=== PATIENT | female | born 1950 | race Asian ===

== ENCOUNTER 2023-08-01 21:04 | Observation (INO) | payer OTHER, SELFPAY ==
[2023-08-01] VITALS (7 sets, daily range): BP systolic 132–158; BP diastolic 72–92; PULSE 68–75; BMI 25.5; BMI 23.4
[2023-08-01 15:25] LABS: % Basophils 1.1 % (0-2); % Eosinophils 1.3 % (0-6); % Immature Granulocytes 0.2 % (0-0.5); % Monocytes 7.9 % (1.7-9.3); % Neutrophils 68.5 % (42.2-75.2); Absolute Basophils 0.1 10^3/uL (0-0.2); Absolute Eosinophils 0.1 10^3/uL (0-0.7); Absolute Monocytes 0.4 10^3/uL (0.1-0.6); Absolute Neutrophils 3.2 10^3/uL (1.4-6.5); Hematocrit 43.1 % (37.0-47.0); Hemoglobin 15.1 g/dL (12.0-16.0); Mean Corpuscular Volume 94.3 fL (81.0-99.0); Mean Platelet Volume 10.2 fL (7.4-10.4); Nucleated Red Blood Cells % 0 %; Platelet Count 193 10^3/uL (130-400); Red Blood Cell Count 4.57 10^6/uL (4.20-5.40); Red Cell Dist. Width 11.9 % (11.5-14.5); White Blood Cell Count 4.7 10^3/uL (4.8-10.8)
[2023-08-01 15:46] LABS: ALT (SGPT) 27 U/L (0-35); AST (SGOT) 39 U/L (14-36); Albumin 4.6 g/dl (3.5-5.0); Alkaline Phosphatase 61 U/L (38-126); Blood Urea Nitrogen 6 mg/dl (7-17); Calcium 9.3 mg/dl (8.4-10.2); Carbon Dioxide 29 mmol/L (22-30); Chloride 102 mmol/L (98-107); Glucose 135 mg/dl (70-99); Potassium 4.5 mmol/L (3.5-5.1); Sodium 136 mmol/L (135-145); Total Bilirubin 0.8 mg/dl (0.2-1.3); Total Protein 8.2 g/dl (6.3-8.2); eGFR > 60.00
[2023-08-01 15:50] LABS: Troponin I < 0.012 ng/ml
--- NOTE | 2023-08-01 17:47 | ED.GENMED ---
History of Present Illness
General
Chief Complaint: Dizziness
Source: patient, records and family
Time Seen by Provider: 08/01/23 17:03
Travel History
Have you had any contact with someone who has COVID-19?: No
Do you have any symptoms of coronavirus? Fever > 100 degrees, chills, cough, shortness of breath, sore throat, loss of taste or smell, muscle aches, or headache?: No
History of Present Illness
History of Present Illness:
This patient is a 73-year-old female presents emergency department with multiple medical complaints. History is somewhat challenging overall just based on the fact that the patient is a poor historian however her son served as a casting molder here.
The patient states that 1 to 2 months ago she felt dizzy and fell. She was noted to be hydrated. However, since that time, she is having intermittent episodes where she feels 'heavy in my head' all across the front and top of her head. This is
happening every day. This is associated with episodes of dizziness that she describes as a sense of movement or spinning. This is exacerbated by moving her head. She has occasional nausea but no vomiting. Today, in addition to those intermittent
symptoms, she had 'cramping' in bilateral hands and arms associated with left arm weakness. This was noted around 7 AM. By approximately 1 PM, symptoms were resolved. Patient was seen in urgent care before arriving here. In review systems she
does note a 'twisting' sensation in the left anterior chest wall 'every once in a while' that makes her feel like she cannot catch her breath. She denies leg swelling, recent immobilization, recent chest trauma, and states that the fall 2 months
ago was not a significant trauma. She denies hemoptysis, cough, fever, chills, dyspnea, change in vision, change in speech, clumsiness. When asked about numbness or tingling she notes that occasionally she will get left upper extremity numbness
but she cannot remember the last time she had it.
Past History
Past History
ED Past Medical History: Other (High blood pressure high cholesterol)
ED Past Surgical History: Cholecystectomy and Gynecological
Social History
Tobacco: Non-smoker
Alcohol: None
Drug: None
Personal:
Living: with family
Phy Exam
Physical Exam
Physical Exam:
GENERAL: Alert , in no apparent distress
EYE: pupils equal and reactive, EOMI, no nystagmus
NECK: Supple, no significant adenopathy.
ENT: o/p clr, mmm.
CARDIAC: Regular rate and rhythm .
LUNGS: Clear breath sounds bilaterally, no acute respiratory distress, no wheezes/rales/rhonchi
ABDOMEN: Soft, without focal tenderness, no r/g, no cvat
NEUROLOGICAL: Alert and oriented, no focal neuro deficits, [id number] normal, motor 5 out of 5, sensory intact, cranial nerves II through XII
SKIN: Warm and dry, skin intact.
MUSCULOSKELETAL: No edema, well perfused.
PSYCH: Normal and appropriate interaction.
Course
Orders/Labs/Results
Orders:
Orders
08/01/23 Dinner
Regular
At Your Request: Limited Participation
08/01/23 15:09
EKG [Electrocardiogram (*1)] Urgent
Reason for Study: Vertigo / Dizzy
08/01/23 15:10
EKG- Treatment ONCE
08/01/23 15:19
Complete Blood Count/With Diff Urgent
Comprehensive Metabolic Panel Urgent
Magnesium Urgent
Comment: ADD ON
Troponin I Urgent
08/01/23 17:16
CT Head W/o Iv Contrast Stat
Comment:
Reason For Exam: dizzy
08/01/23 17:46
ECG [Electrocardiogram (*1)] Stat
Reason for Study: Chest Pain
EKG- Treatment ONCE
08/01/23 18:13
D-Dimer Stat
08/01/23 19:53
Aspirin 325 mg PO NOW STA
08/01/23 20:29
Add On- LAB Urgent
Tests Added?: magnesium
08/01/23 20:30
Admit/Transfer Patient As Directed
Co-Sign Provider:
Level of Care: Observation services
Assign to:: Telemetry
Physician / Group: gricelda sanderson
Diagnosis: vertigo, left arm numbness concern tia/cva , cramping muscles
Reason for Telemetry: CVA/TIA
Date to Stop Telemetry: 08/04/23
Time to Stop Telemetry: 11:00
Reason for Hospitalization: vertigo, left arm numbness concern tia/cva , cramping muscles
Code Status As Directed
Resuscitation Status: Full Code
08/01/23 20:35
Meclizine [Antivert] 25 mg PO Q8HPRN PRN
Orthostatic Vital Signs As Directed
Orthostatic VS Frequency: Now
08/01/23 21:49
Activity As Directed
Activity Level: As Tolerated
Intake/ Output As Directed
Frequency: Per unit guidelines
Orthostatic Vital Signs As Directed
Orthostatic VS Frequency: Daily
Pneumatic Compression Sleeves As Directed
Type: Knee high
Vital Signs As Directed
Frequency: Per unit guidelines
Weight As Directed
Frequency: Daily
Ot Eval And Treat Routine
Pt Eval And Treat Routine
Activity Level: As Tolerated
DX Deep Vein Thrombosis Video Routine
08/01/23 22:00
Atorvastatin [Lipitor] 20 mg PO HS
Multivitamin [Theragran] 1 tablet PO HS
08/02/23 07:16
B12 [Vitamin B12] IN AM
Basic Metabolic Panel IN AM
Cardiovascular Evaluation IN AM
Complete Blood Count/With Diff IN AM
TSH Reflex To Free T4 IN AM
08/04/23 11:00
DC Protocol for Telemetry ONCE
Abnormal Lab Results
02/22/24
15:19
WBC 4.7 L 10^3/uL
(4.8-10.8)
MCH 33.0 H pg
(27.0-31.0)
Absolute Lymphs (auto) 1.0 L 10^3/uL
(1.2-3.4)
BUN 6 L mg/dl
(7-17)
Creatinine 0.5 L mg/dL
(0.6-1.0)
Glucose 135 H mg/dl
(70-99)
AST 39 H U/L
(14-36)
08/01/23 15:19
08/01/23 15:19
Vital Signs
Initial and Last Documented VS:
Initial Vital Signs
Temp Pulse Resp BP Pulse Ox
98.3 F 69 18 150/92 99
08/01/23 15:05 08/01/23 15:05 08/01/23 15:05 08/01/23 15:05 08/01/23 15:05
Last Documented Vital Signs
Temp Pulse Resp BP Pulse Ox
98.8 F 65 20 123/71 97
08/02/23 12:02 08/02/23 12:02 08/02/23 12:02 08/02/23 12:02 08/02/23 12:02
*Critical Care Note
Total Time (30-74mins, 75-104mins- exclusive of procedures): Not Applicable
Update Note
Update Note:
Patient presents to the Emergency Department with __multiple complaints including dizziness, weakness, etc.
Number and Complexity of Problems Addressed at the Encounter
� Chronic conditions affecting care:
� Acute Exacerbation and/or Progression of Chronic Illness:
� Differential Diagnosis includes: But not limited to TIA, CVA, peripheral vertigo, etc.
Amount and/or Complexity of Data to be Reviewed and Analyzed
� I performed an independent evaluation of and my interpretation is:
EKG: Read by me, sinus tachycardia, no acute ischemia, normal QRS
CT: No acute disease, possible sinus disease
Xrays:
Laboratory Studies: Generally unremarkable
Other:
� Review of other/old records reveals:
� Clinical information was obtained by an independent historian: Son who isbedside
� Prescriptions/Medications Considered but not given:
� Further testing considered but not performed:
Risk of Complications and/or Morbidity or Mortality of Patient Management
� Social determinants of health affecting care:
� Discussion with other providers (PCP, Hospitalists, Consultants, etc):
� Escalation of care including admission/observation vs risk of discharge considered: 73-year-old female with a variety of symptoms including intermittent weakness of left upper extremity, dizziness. Symptoms resolved now
however raises concern for the possibility of TIA/CVA. Recommend admission/observation likely MR etc. Will discuss with hospitalist
ED Attending Note
-
Portions of this chart may have been created with voice recognition software.� Occasional wrong word or��sound alike� substitutions may have occurred due to the inherent limitations of voice recognition software.
Discharge Plan
Departure
Patient Disposition: Admit
Date of Disposition: 08/01/23
Time of Disposition: 19:57
Admit to: Telemetry
Admit to doctor: maria e
Presentation/result/management discussed w/ accepting MD/DO: Hospitalist
Condition: Fair
Discharge Problem:
Dizziness, Weakness
Interventions
Interventions:
*Risk Screen - Suicide Last Done: 08/01/23 21:47
*General Assessment Last Done: 08/01/23 15:08
*Neglect/Abuse Screening Last Done: 08/01/23 15:08
ED- Fall Risk Assessment Last Done: 08/01/23 17:16
*ED COVID-19 Vaccine History Last Done: 08/01/23 21:47
*Nursing Disposition Last Done: 08/01/23 21:38
ED- Neurological Assessment Last Done: 08/01/23 17:16
ED- Cardiac Assessment Last Done: 08/01/23 17:16
ED Swallowing Screen Last Done: 08/01/23 17:22
Discharge Date and Time
Discharge Date/Time: 08/01/23 21:39
[2023-08-01 18:41] LABS: D-Dimer 0.27 ug/mlFEU (0.00-0.50)
[2023-08-01] MEDS: ASPIRIN 325 MG PO (19:56)
--- NOTE | 2023-08-01 20:05 | HPS.HSE ---
Addendum entered and electronically signed by Leroy Diop DO 08/01/23 21:40:
Patient seen and examined independently. Agree with findings and plan as set forth by TODD Ellison.
Patient is a 73y F with PMH significant for hypertension, GERD and vertigo who presents to ED for evaluation of dizziness and L arm numbness / pain. History from patient and family at the bedside serving as strategic planning specialist. Patient initially
developed dizziness / vertigo in August 2022. Has been having intermittent issues since that time. Had a small supply of meclizine prescribed in August, but none since that time. Patient reportedly had a fall about 2 months ago and presented to a
local ED (though not here apparently). She has been complaining of pain in the L knee and L elbow since that time. Today she noted numbness / tingling from the L elbow to the fingers and presented to the ED for evaluation. She also complains of
cramping of the hands / feet.
Ass:
Left Arm Numbness / Pain
Dizziness / Vertigo
Benign Hypertension
Dyslipidemia
GERD / Gastric Ulcer
Plan:
Observe overnight for further evaluation and treatment.
L elbow (and knee ) symptoms have been present since fall onto L side 1-2 months ago.
Check radiographs - though any bony injury would likely have healed by now in any event.
PT / OT evals.
Check orthostatic signs.
Vestibular therapy evaluation.
Meclizine PRN.
Neuro evaluation - defer any advanced imaging, etc to their recommendations.
No acute symptoms at this time that are concerning for acute CVA.
? residual dizziness due to prior CVA versus chronic BPPV.
Original Note:
Family Physician
-
Family Physician: NOT KNOW UNKNOWN - PT DOES
Chief Complaint
-
Dizziness with standing, hand and leg cramps decreased oral intake
History of Present Illness
73-year-old female whose son is translating at bedside has been reporting dizziness with standing since August 2022. She describes the dizziness as a spinning sensation with occasional nausea but no vomiting. She describes this worsens when she
stands to walk. She used to take meclizine but ran out in September. She reports this morning she had intermittent dizzy sensation with cramping in bilateral hands and feet along with left arm numbness from left elbow to fingertips. From 7 AM to 1 PM
then resolved. Her son states that she tends to get very anxious. She also has had loss of taste since 2004 had biopsies in her mouth at [facility] nothing ever discovered, due to this her son states that she does not tend to drink fluids throughout
the day. 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 She denies recent fever,
chills, chest pain, palpitations, cough, shortness of breath, abdominal pain, nausea, vomiting, diarrhea, urinary symptoms, blurred vision. She has past medical history of vertigo treated last August 2022 in the ER, chronic hep B with cirrhosis 2013
with follow-up GI 2016, Schatzki's ring, gastric ulcers., Anxiety
Medical History
Past Medical History
Past Medical History: Reports Other
Additional Past Medical History:
HTN
HLD
vertigo treated last August 2022 in the ER
chronic hep B with cirrhosis 2013 with follow-up GI 2016,
Schatzki's ring,
gastric ulcers
Anxiety
Past Surgical History: Reports Other (Hysterectomy, Endo/[place] 2016)
Social History
Tobacco: Non-smoker
Alcohol: None
Drug: None
Personal: Single
Living: With Family
Employment: Retired
Family History
Family History: Other (Parents old age lives [place] did not seek health care)
Allergies / Home Medications
Allergies reflects when Allergies were last updated in [employer].
Home Medications with original date entered in [employer]
Allergy/Medication List:
Allergies
Allergy/AdvReac Type Severity Reaction Status Date / Time
No Known Allergies Allergy Verified 08/01/23 15:08
Home Medications
atorvastatin 20 mg tablet 20 mg PO HS 08/01/23
wwsybfhsqdtx-xowfdmfq-rxgujg tablet 1 tab PO HS 08/01/23
omega 1-cki-wbc-fish oil 1,000 mg (120 mg-180 mg) capsule (Fish Oil) 1 cap PO HS 08/01/23
Review of Systems
-
History Source: Patient and Family (Son at bedside)
A 12 point ROS was completed and negative except as noted: Yes
Constitutional: Denies Fever or Chills
EENT: Reports Other (Chronic postnasal drip); Denies Sore Throat or Runny Nose
Respiratory: Denies Cough or Trouble Breathing
Cardiac: Denies Chest Pain, Diaphoresis, Palpitations or Syncope
Abdomen/GI: Denies Abdominal Pain, Nausea, Vomiting, Diarrhea, Constipated, Bloody Stools or Black Stools
: Denies Dysuria, Frequency, Flank Pain, Incontinence, Difficulty Voiding, Urgency or Bleeding
Musculoskeletal: Reports Other (Muscle cramps to hands and legs); Denies Joint Pain, Joint Swelling or Edema
Skin: Denies Itching or Rash
Neurological: Reports Dizzy (Vertigo sensation with walking) and Numbness (Left elbow to hand 6 hours today then resolved); Denies Headache or Weakness
Endocrine: Reports No Symptoms
Hematologic/Lymphatic: Reports No Symptoms
Psych: Reports Calm
Physical Exam
Vital Signs
Vital Signs
Temp Pulse Resp BP Pulse Ox
98.3 F 107 32 145/76 97
08/01/23 15:05 08/01/23 19:25 08/01/23 19:25 08/01/23 19:25 08/01/23 18:15
Physical Exam
General: Comfortable and Conversant; No Pain or Fever
HEENT: NormoCephalic, Anicteric, Moist mucous membranes, PERRLA (Negative nystagmus), [place] Conjunctivae and No Ptosis
Respiratory: Clear; No Wheezes, Rales or Rhonchi
Cardiac: S1/S2 and Regular Rhythm; No Murmur, Rub, Gallop or Peripheral Edema
Breast: Deferred by me
GI: Soft, Non Tender, Non Distended, Normal Bowel Sounds and No Hepatosplenomegaly
Rectal: Deferred by Provider
Genito-urinary: Deferred by me
Musculoskeletal: No Clubbing, No Cyanosis and No Edema
Skin: Warm and Dry; No Rash or Jaundice
Neuro: AO x 3 (Son is translating at bedside), No Motor Deficits, Cranial Nerves Intact and No Sensory Deficits; No Slurred Speech, Facial Droop or Tremors
Psych: Calm
Laboratory Results
-
08/01/23 15:19
08/01/23 15:19
Laboratory Results
Total Bilirubin 0.8 mg/dl (0.2-1.3) 08/01/23 15:19
AST 39 U/L (14-36) H 08/01/23 15:19
ALT 27 U/L (0-35) 08/01/23 15:19
Alkaline Phosphatase 61 U/L (38-126) 08/01/23 15:19
Troponin I < 0.012 ng/ml 08/01/23 15:19
Data Reviewed
-
CT Scan: Report Reviewed by me
Lab Data: Labs Reviewed by me
Impression/Plan
-
Impression/plan:
Observation telemetry
#Dizziness concern for vertigo versus CVA/TIA
#Hx of vertigo August 2022
-Check orthostatic vitals
-Meclizine as needed vertigo
Asa 325 mg given in Er
-Consult Neuro
-check lipid profile, HgbA1c
-PT/OT/case management eval
CT head: No acute intracranial abnormality, opacification of the portion of the right maxillary sinus which appears new from CT September 01, 2022
EKG: Sinus tach 108 bpm, QTc 455 MS
#Muscle cramping to hands and feet possible 2/2 anxiety reaction
K4.5, calcium 9.3
Check magnesium level
#HTN�benign
bp stable at rest
-Check orthostatic vitals
#HLD
- cont atrovastatin
-Lipid profile
#Hx gastric ulcers
#Schatzki's ring
-Follows with GI
-no ppi listed
Diet: vegeterian
DVT prophylaxis
SCDs
Full code
[2023-08-01 21:37] LABS: Magnesium 2.2 mg/dl (1.6-2.3)
[2023-08-01] MEDS: LIPITOR 20 MG PO (22:00)
[2023-08-01] MEDS: THERAGRAN 1 TABLET PO (22:00)
--- NOTE | 2023-08-01 22:39 | PTCARENOTE ---
Patient received in bed from ED @ 1307. Pt ambulated from strecher to bed. Frisian speaking, son at bedside. Oriented to room and call moran.
[2023-08-02 03:05] VITALS: BP 100/68
[2023-08-02 06:00] VITALS: BMI 23.2
[2023-08-02 08:16] LABS: % Basophils 1.7 % (0-2); % Eosinophils 2.8 % (0-6); % Immature Granulocytes 0.3 % (0-0.5); % Lymphocytes 31.5 % (20.5-51.1); % Monocytes 8.4 % (1.7-9.3); % Neutrophils 55.3 % (42.2-75.2); Absolute Basophils 0.1 10^3/uL (0-0.2); Absolute Eosinophils 0.1 10^3/uL (0-0.7); Absolute Lymphocytes 1.1 10^3/uL (1.2-3.4); Absolute Monocytes 0.3 10^3/uL (0.1-0.6); Hematocrit 40.7 % (37.0-47.0); Hemoglobin 14.3 g/dL (12.0-16.0); Mean Corp Hgb Conc. 35.1 g/dL (33.0-37.0); Mean Platelet Volume 10.3 fL (7.4-10.4); Nucleated Red Blood Cells % 0 %; Platelet Count 178 10^3/uL (130-400); Red Blood Cell Count 4.33 10^6/uL (4.20-5.40); Red Cell Dist. Width 11.9 % (11.5-14.5); White Blood Cell Count 3.6 10^3/uL (4.8-10.8)
[2023-08-02 09:00] LABS: Blood Urea Nitrogen 6 mg/dl (7-17); Carbon Dioxide 28 mmol/L (22-30); Chloride 104 mmol/L (98-107); Estimated Creatinine Clearance 72 ml/min; Glucose 133 mg/dl (70-99); HDL Cholesterol 57 mg/dl; LDL Cholesterol, Calculated 49 mg/dl; Potassium 4.2 mmol/L (3.5-5.1); Sodium 138 mmol/L (135-145); Total Cholesterol 122 mg/dl (50-199); Triglyceride 84 mg/dl (10-149); Very Low Density Lipoprotein 16 mg/dl (0-30); eGFR > 60.00
[2023-08-02 09:20] VITALS: BP 136/87
[2023-08-02 09:25] LABS: TSH Reflex To Free T4 2.74 uIU/ml (0.47-4.68)
[2023-08-02 09:41] LABS: Vitamin B12 > 1000 pg/ml (239-931)
[2023-08-02 10:23] VITALS: BP 133/84
--- NOTE | 2023-08-02 10:39 | CM ---
Addendum entered by Landy French 08/02/23 14:45:
Per PT/OT recommendations, no home care needs.
Addendum entered by Landy French 08/02/23 10:44:
STOUT completed.
Original Note:
Patient seen bedside with son Kareem eller.
Patient lives in a rancher style home with 2-3 steps to enter.
Patient ambulates without assistive devices.
Patient independent prior to admission.
patient has not had VN or skilled rehab in the past.
PT/OT pending. Await recommendations.
MRI (P).
PCP: Dr Pardo
Pharmacy: [facility]
Plan: home possible VN needs.
[2023-08-02 12:02] VITALS: BP 123/71
--- NOTE | 2023-08-02 12:26 | CON.NEURO4 ---
Addendum entered and electronically signed by Jamil Andres MD 08/02/23 14:56:
I saw and evaluated the patient reviewed note by Yessy Zhang agree with the findings the following comments:
Patient is a 73-year-old right-handed woman speaks Guamanian presenting the hospital due to chief complaint of left hand pain became constant the past 1 to 2 days. She also complains of intermittent and frequent bilateral hand cramping that has
been going on for some time by the patient and her son's estimation 2 to 3 years. She has not had any recent traumatic injuries or unusual head pains.
Dizziness has also been a concern which typically is short lasting lasting around 2 to 3 minutes and seems to be worsened when she moves her head to and fro. She denies any significant change in gait recently, and denies any changes in urinary or
bowel function.
Neurologic examination shows unremarkable mental status, normal cranial nerves without any pathologic nystagmus, motor strength is 5/5 in shoulder abduction arm flexion extension wrist extension finger flexion in all digits, mild right thumb
opposition weakness, atrophy of the thenar eminences bilaterally in the hands, hip flexion strength 5/5 bilaterally, intact to light touch in upper and lower extremities grossly, reflexes 2+ and symmetric biceps triceps brachialis patella and
Achilles no clonus Babinski is negative, normal finger-nose testing normal gait.
CT head noncontrast unremarkable.
Vaughan-Hallpike maneuver was negative for any nystagmus.
Patient with positive orthostatic vital signs
Assessment:
Intermittent dizziness may be due to orthostatic hypotension or benign paroxysmal positional vertigo
Bilateral hand cramping is chronic, this along with the left arm pains raises concern for potentially carpal tunnel syndrome. No findings suggestive of cervical myelopathy or cervical spine lesion or radicular symptoms.
Recommendations
-MRI brain with and without contrast to evaluate the dizziness to exclude lesion in the posterior fossa which would not be well-evaluated on CT head noncontrast
-HUGO stockings for the orthostatic hypotension
-Vestibular therapy should be helpful for the intermittent dizziness as well
-Recommend outpatient EMG testing as there is concern for bilateral carpal tunnel syndrome
-Start gabapentin 100 mg at night, increase to 200 mg at night after 1 week, and increase to 3 mg at 1 night after 2-week and stay on this dose
Original Note:
Documented by User: Yessy Serna NP 08/02/23 14:44
Consultation - Neurology 4
-
CONSULTING PHYSICIAN: Arleen Andres MD
REFERRING PHYSICIAN: Hospitalists/TODD Ellison
DICTATED BY: TODD Gambino
DATE/TIME OF REQUEST: 08/01/23
DATE/TIME OF CONSULTATION: 08/02/23
Reason for Consultation: Dizziness
History of Present Illness:
This is a 73-year-old female who has presented to the hospital on 08/01/23 with report of dizziness with standing, left arm numbness, and bilateral hand cramping. Patient is primarily Guamanian speaking and her son is at bedside interpreting.
Patient reports an episode of a room-spinning sensation in August 2022 associated with nausea but no vomiting. That episode of vertigo caused her to fall, injuring her left neck, arm, and leg. Since that time she endorses intermittent dizziness
typically associated with standing. The dizzy episodes typically last 2-3 minutes. Turning her head side to side does not cause any dizziness. She reports that her gait is typically unsteady at first due to the dizziness but improves quickly, she
walks without an assistive device. About two months ago she fell and injured her left elbow and left knee. She denies any changes in her hearing or tinnitus. She reports about a one year history of intermittent bilateral hand cramping, this does not
occur on a daily basis. She denies dropping things. She has had loss of taste since 2004. The cramping typically occurs at night. Last night, she developed tingling in bilateral hands and then left arm numbness/discomfort, prompting them to come to
the ER for evaluation. CT head was obtained and is negative for any acute abnormalities. Orthostatic vital signs are positive. She denies any headache, vision changes, speech/swallow difficulty, nausea, weakness, chest pain, palpitations, and
shortness of breath.
Past Medical History: HTN, HLD, vertigo, GERD, gastric ulcer, H. pylori, liver mass, hepatitis B, cirrhosis, IBS, hiatal hernia, Sjogren's syndrome, uterine fibroid, diverticulosis, vitamin B12 deficiency
Surgical History: Cholecystectomy, mouth lesion removal, hysterectomy, tubal ligation
Family History: Reviewed and noncontributory.
Social History: Denies tobacco, alcohol, and illicit drug use.
Allergies: No known allergies.
Home Medications: See below.
Review of Symptoms:
Patient denies any fever, headache, chest pain, shortness of breath, GI or symptoms.
�Per the HPI.�All systems are reviewed negative except above.
Physical Exam:
The patient is afebrile, abdomen is nondistended, breathing is unlabored, skin is warm and dry, no edema.
NIH Stroke Scale:
I performed the NIH stroke scale on the patient on 08/02/23 at 1330. The patient scored 0 points on the NIH stroke scale assessment, which were assigned as follows: See below.
Neurologic Examination:
The patient is awake, alert and oriented x 3. She is able to follow commands and answer questions appropriately. There is no aphasia or dysarthria. On cranial nerve assessment, pupils are 3 mm bilateral, round and reactive to light and
accommodation. Visual guardado are full. Extraocular movements are intact. Facial sensations are intact and bilaterally symmetrical, there is no facial asymmetry. Hearing is intact bilaterally to normal conversation volume. Tongue palate and uvula
are midline. Sternocleidomastoid strengths are full bilaterally. Motor strengths are 5/5 bilateral upper and lower extremities on medical research [place] scale. Wrist and finger extension/flexion 5/5. Right thumb opposition 4/5..There is no drift
or involuntary movement noted. Deep tendon reflexes are 2+ bilateral upper and lower extremities and Babinski is absent bilaterally. There was no extinction noted on double simultaneous stimulation. Coordination is intact by finger to nose
bilaterally. Bilateral hand atrophy. Negative Vaughan Hallpike. Gait is steady.
Lab Results: See below.
Neuro Imaging:
1. CT Head 08/01/23: No evidence of acute intracranial abnormality.
Differentials for the patient's presentation include:
1. Possible carpal tunnel syndrome producing hand cramping.
2. Vertigo syndrome, cannot entirely exclude small old stroke. Mayra-Hallpike negative, less supportive of BPPV.
3. Orthostatic hypotension.
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
Recommendations:
-MRI brain w/ and w/o contrast ordered/pending.
-Initiate gabapentin 100mg HS x1 week. If tolerating, may increase to 200mg HS week 2, and if tolerating then can increase to 300mg HS at week 3.
-HUGO stockings, slow position changes, increased fluid intake for orthostasis.
-Needs EMG as an outpatient to evaluate for carpal tunnel syndrome.
-PT evaluations.
-DVT prophylaxis.
Discussed patient care with: Dr. Andres, the patient, patient's son
NIH Stroke Score
Subsequent NIH Scale
Date of Subsequent NIH Scale: 08/02/23
Time of Subsequent NIH Scale: 13:30
NIH Stroke Score
Level of Consciousness: 0 - Alert
LOC Questions: 0-Answers both correctly
LOC Commands: 0-Performs both correctly
Best Horizontal Gaze: 0-Normal
Visual Guardado: 0=Normal, no visual loss
Facial Palsy: 0=Normal, symmetrical
Motor - Right Arm: 0=No drift 10 seconds
Motor - Left Arm: 0=No drift 10 seconds
Motor - Right Le-No drift 5 seconds
Motor - Left Le-No drift 5 seconds
Limb Ataxia: 0-Absent
Sensation: 0-Normal
Best Language: 0-No aphasia
Dysarthria: 0-Normal
Extinction and Inattention: 0-No abnormality
Total Score:: 0
Vital Signs and Labs
-
Vital Signs and Labs:
Vital Signs
Temp Pulse Resp BP Pulse Ox
98.8 F 65 20 123/71 97
08/02/23 12:02 08/02/23 12:02 08/02/23 12:02 08/02/23 12:02 08/02/23 12:02
Lab Results
08/02/23 07:16
08/02/23 07:16
Sodium 138 mmol/L (135-145) 08/02/23 07:16
Potassium 4.2 mmol/L (3.5-5.1) 08/02/23 07:16
BUN 6 mg/dl (7-17) L 08/02/23 07:16
Glucose 133 mg/dl (70-99) H 08/02/23 07:16
Calcium 9.0 mg/dl (8.4-10.2) 08/02/23 07:16
LDL Cholesterol, Calc 49 mg/dl 08/02/23 07:16
Vitamin B12 > 1000 pg/ml (239931) H 08/02/23 07:16
Medications
-
Active Medications
Generic Name Dose Route Start Last Admin
Trade Name Freq PRN Reason Stop Dose Admin
Atorvastatin Calcium 20 mg 08/01/23 22:00 08/01/23 22:00
Atorvastatin (Lipitor) 20 Mg Tablet PO 08/29/23 21:59 20 mg
HS SHAMIR Administration
Meclizine HCl 25 mg 08/01/23 20:35
Meclizine 25 Mg Tablet PO 08/29/23 20:34
Q8HPRN PRN
dizziness
Multivitamins Therapeutic 1 tablet 08/01/23 22:00 08/01/23 22:00
Multivitamin Tablet PO 08/29/23 21:59 1 tablet
HS SHAMIR Administration
Sodium Chloride 0 flush 08/01/23 22:00
Sodium Chloride 0.9% (Flush) Syringe IV 08/29/23 21:59
PER PROTOCOL SHAMIR
Home Medications
Medication Instructions Recorded
atorvastatin 20 mg tablet 20 mg PO HS High Cholesterol 08/01/23
xvctyokzpjax-sbmavqxs-bvdbyy tablet 1 tab PO HS Supplement 08/01/23
omega 5-ciq-qdl-fish oil 1,000 mg 1 cap PO HS 08/01/23
(120 mg-180 mg) capsule (Fish Oil)

Documented by User: Jamil Andres MD 08/02/23 14:51
NIH Stroke Score
NIH Stroke Score
Total Score:: 0
--- NOTE | 2023-08-02 15:47 | W.PN.UPDATE ---
Update Note
Progress Note Update
Patient seen and examined
Discussed with resident
Discussed with neurology
Discussed with patient's son at the bedside.
Presentation with chronic dizziness
Bilateral upper extremity paresthesia.
Overall neurologic examination with no focal findings
CT scan of the head with no acute abnormalities
MRI of the brain with no acute abnormalities.
Report of chronic maxillary sinusitis of unknown clinical significance.
Start low-dose of Neurontin 100 mg at bedtime as recommended per neurology
HUGO stockings.
Vestibular therapy.
Outpatient neurology follow-up including EMG.
--- NOTE | 2023-08-02 15:51 | W.DCSUMMARY ---
Discharge Summary
Discharge Data
Date of Admission: 08/01/23
Date of Discharge: 08/02/23
-
Pending Results: No
Hospital Course
DISCHARGE DIAGNOSIS:
1. Chronic Dizziness
2. Bilateral Upper extremity Paraesthesia
3. Hyperlipidemia
BRIEF HOSPITAL COURSE: This is a 73 year old female with PMH significant for hypertension, GERD and vertigo who presented to ED with her son with report of dizziness with standing, left arm numbness and bilateral hand cramping. Patient initially
developed dizziness in August 2022 and has been experiencing intermittent issues since that time. At that time, she reported an episode of a room-spinning sensation with nausea but no vomiting. Dizziness typically lasts around 2 to 3 minutes and
seems to be worsened when she moves her head to and fro. The episode caused her to fall, injuring her left knee, arm and leg. She has been complaining of pain in her Left knee and elbow since the incident. She reports about a one year history of
intermittent bilateral hand cramping, which does not occur on a daily basis. The cramping typically occurs at night. Last night, she developed tingling in bilateral hands and then left arm numbness and discomfort, prompting her to come to the ER for
evaluation. She denies recent fever, chills, chest pain, palpitations, cough, shortness of breath, abdominal pain, nausea, vomiting, diarrhea, urinary symptoms, blurred vision.She denies any changes in her hearing or tinnitus. Evaluation with CT
scan of he head showed no acute abnormalities. Evaluation with MRI of the brain unremarkable with no acute abnormalities. Overall neurological examination with no focal findings. Recommendation to follow up with Neurology outpatient for further
testing.
Bilateral Upper Extremity Paraesthesia: The patient will be started on Low dose of Neurontin 100mg at Bedtime.
Hyperlipidemia: The patient will be continued on current medication regimen Atorvastatin.
On the day of discharge, vital signs include Temperature: 98.8, BP: 123/71, Pulse:65, O2 Sat: 97% on room air.
Physical Examination: She is alert, awake, oriented to name, place and time. Her head is atraumatic, normocephalic. Neck is supple. Chest is clear to auscultation. Heart is regularly regular without gallops or murmurs. Abdomen is soft, nondistended,
non distended.� Extremities show no peripheral edema.
Discharge Plan
-
Patient Disposition: Home (Routine Discharge)
Discharge Diagnosis/Procedures: Chronic dizziness
Condition: Good
Diet: Regular
Referrals:
Oswaldo Pardo MD [Family Provider] -
Prescriptions:
New
gabapentin 100 mg capsule
100 mg PO HS Qty: 30 0RF
Continued
atorvastatin 20 mg tablet
20 mg PO HS
mrdfzopnbvyp-fqedcfbw-ggrqtv Tablet
1 tab PO HS
omega 3-vze-xzo-fish oil [Fish Oil] 1,000 mg (120 mg-180 mg) Capsule
1 cap PO HS
Discharge Orders:
Discharge Patient (As Directed); Ordered 08/02/23
Ordered By: Raymond Robertson
== END 2023-08-02 17:26 | disposition home or self-care (01) ==
LOC: 4 WEST ACU 21:04
PROVIDERS: Clinical Nurse Specialist Family Health; Student in an Organized Health Care Education/Training Program; ADMITTING PHYSICIAN Hospitalist; ATTENDING PHYSICIAN Internal Medicine; CONSULT PHYSICIAN Student in an Organized Health Care Education/Training Program; EMERGENCY PHYSICIAN Emergency Medicine; FAMILY PHYSICIAN Family Medicine
DX: R42 Dizziness and giddiness (principal); R20.2 Paresthesia of skin; R25.2 Cramp and spasm; R53.1 Weakness; M79.602 Pain in left arm; R11.0 Nausea; I10 Essential (primary) hypertension; K21.9 Gastro-esophageal reflux disease without esophagitis; F41.9 Anxiety disorder, unspecified; G93.5 Compression of brain; J01.00 Acute maxillary sinusitis, unspecified; E78.5 Hyperlipidemia, unspecified; Z87.11 Personal history of peptic ulcer disease
CPT/HCPCS: 70450; 70553; 73080; 80048; 80053; 80061; 82607; 83735; 84443; 84484; 85025; 85379; 93005; 97161; 97165; 99285; A9575; G0378

== ENCOUNTER → 2023-11-12 07:36 | Outpatient (REF) | payer OTHER, SELFPAY | LOC: WDC 07:36 | PROVIDERS: ATTENDING PHYSICIAN Family Medicine | DX: Z12.31 Encounter for screening mammogram for malignant neoplasm of breast (principal) | CPT/HCPCS: 77063; 77067 ==

== ENCOUNTER → 2024-11-13 08:12 | Outpatient (REF) | payer OTHER, SELFPAY | LOC: WDC 08:12 | PROVIDERS: ATTENDING PHYSICIAN Family Medicine | DX: Z12.31 Encounter for screening mammogram for malignant neoplasm of breast (principal) | CPT/HCPCS: 77063; 77067 ==